=== PATIENT | female | born 1975 | race African-American/Black ===

== ENCOUNTER 2016-07-05 08:01 | Emergency (ER) | payer OTHER ==
[~2016-07-05] VITALS: Ht 167.6 cm; Wt 149.5 kg
[~2016-07-05 08:01] MED LIST: ASPI81TA2 PO; CLON.2; HYDR25TA; LISI-618 PO
[2016-07-05] MEDS ORDERED: AMLO-512 PO (08:10)
[2016-07-05] MEDS ORDERED: PredniSONE 20 MG TABLET PO ONE (08:30)
[2016-07-05] MEDS ORDERED: DiphenhydrAMINE HCL 50 MG CAPSULE PO ONE (08:30)
[2016-07-05 11:39] VITALS: BP 138/84
== END 2016-07-05 11:49 | disposition home or self-care (01) ==
LOC: EMS 08:02
DX: T78.3XXA Angioneurotic edema, initial encounter (principal); I10 Essential (primary) hypertension; Z88.0 Allergy status to penicillin
CPT/HCPCS: 99285; J7512

== ENCOUNTER 2022-12-08 09:20 | Emergency (ER) | payer OTHER ==
[~2022-12-08] VITALS: Ht 167.6 cm; Wt 136.4 kg
[~2022-12-08 09:20] MED LIST changes: +AMLO-258 PO; -ASPI81TA2 PO; -CLON.2; -LISI-618 PO; +LISI20TA24 PO
[2022-12-08 09:25] VITALS: TEMP 98.4
[2022-12-08] MEDS ORDERED: CHOL500045 PO (09:25)
[2022-12-08] MEDS ORDERED: LOSA100T59 PO (09:25)
[2022-12-08] MEDS ORDERED: HYDR50TA PO (09:25)
[2022-12-08] MEDS ORDERED: AMLO10TA55 PO (09:25)
[2022-12-08] MEDS ORDERED: SEMA1PEN3 SQ (09:28)
[2022-12-08] MEDS ORDERED: KETOROLAC TROMETHAMINE 60 MG/2 ML VIAL IM ONE (10:15)
[2022-12-08 10:56] VITALS: BP 134/86; PULSE 65; RESP 16
== END 2022-12-08 11:00 | disposition home or self-care (01) ==
LOC: EMS 09:26
DX: M77.31 Calcaneal spur, right foot (principal); I10 Essential (primary) hypertension; G43.909 Migraine, unspecified, not intractable, without status migrainosus; Z98.890 Other specified postprocedural states; Z88.0 Allergy status to penicillin
CPT/HCPCS: 99283